=== PATIENT | female | born 1955 | race Caucasian/White ===

== ENCOUNTER 2023-09-17 07:53 | Day surgery (SDC) | payer MEDICARE, OTHER ==
[2023-09-17] MEDS ORDERED: LIDOCAINE HCL 1% 50 MG/5 ML VL PF IJ ONE (07:54)
[2023-09-17] MEDS ORDERED: BUPIVACAINE 0.5% VIAL IJ ONE (07:54)
[2023-09-17] MEDS ORDERED: Lactated Ringers 1,000 ML IV ONE (09:19)
[2023-09-17] MEDS ORDERED: DIPRIVAN 200 MG/20 ML IV ONE (09:31)
--- NOTE | 2023-09-17 11:20 | XRAY ---
Indication: Ganglion impar nerve block. Intraoperative fluoroscopy provided for 14 seconds. 2 digital spot image submitted for interpretation demonstrates posterior needle tip projecting just anterior to sacrococcygeal junction. Small amount of contrast injected for needle tip placement. Correlate with intraoperative findings/report.
--- NOTE | 2023-09-17 11:40 | XRAY ---
14 seconds of fluoroscopy was used in surgery for a ganglion impar nerve block.
== END 2023-09-17 10:05 ==
LOC: SDC-PAIN 07:53
PROVIDERS: ATTEND Psychiatry & Neurology Pain Medicine
DX: M53.3 Sacrococcygeal disorders, not elsewhere classified (principal); E11.9 Type 2 diabetes mellitus without complications
CPT/HCPCS: 64520; 72220; 77002; 82947; J2001; J2704; Q9966